=== PATIENT | male | born 1945 | race Caucasian/White ===

== ENCOUNTER 2017-10-22 09:57 | Emergency (ER) | payer SELFPAY ==
--- NOTE | 2017-10-22 11:18 | UC ---
Respiratory Complaint HPI - HPI Summary HPI Summary: States he has been coughing for the past week, started as a sore throat. Currently has production of dark spear-colored phlegm. Denies fever, SOB, CP or facial pain/post nasal drip. He denies any chronic conditions, he is not on any medications, denies allergies to medications - History of Current Complaint Chief Complaint: UCRespiratory Stated Complaint: COUGH Time Seen by Provider: 10/22/17 10:57 Hx Obtained From: Patient Onset/Duration: Gradual Onset, Lasting Days Timing: Intermittent Episodes Severity Initially: Mild Severity Currently: Moderate Pain Intensity: 3 Character: Cough: Productive, Sputum Description: - muro, dark Aggravating Factors: Nothing Alleviating Factors: Nothing Associated Signs And Symptoms: Positive: URI - Risk Factors Pulmonary Embolism Risk Factors: Negative Cardiac Risk Factors: Negative Pseudomonas Risk Factors: Negative Tuberculosis Risk Factors: Negative - Allergies/Home Medications Allergies/Adverse Reactions: Allergies Allergy/AdvReac Type Severity Reaction Status Date / Time No Known Allergies Allergy Verified 10/22/17 10:11 PMH/Surg Hx/FS Hx/Imm Hx Previously Healthy: Yes - Surgical History Surgical History: Yes Surgery Procedure, Year, and Place: angioplasty - Social History Alcohol Use: Occasionally Substance Use Type: None Smoking Status (MU): Former Smoker Review of Systems Respiratory: Cough All Other Systems Reviewed And Are Negative: Yes Physical Exam Triage Information Reviewed: Yes Appearance: Well-Appearing, No Pain Distress Vital Signs: Initial Vital Signs Temp 97.8 F 10/22/17 10:12 Pulse 79 10/22/17 10:12 Resp 17 10/22/17 10:12 BP 133/88 10/22/17 10:12 Pulse Ox 100 10/22/17 10:12 Vital Signs Reviewed: Yes Eyes: Positive: Conjunctiva Clear ENT: Positive: Hearing grossly normal, Pharynx normal, TMs normal, Tonsillar exudate, Uvula midline Neck: Positive: Supple, Nontender, No Lymphadenopathy Respiratory: Positive: Chest non-tender, Lungs clear, Normal breath sounds, No respiratory distress Cardiovascular: Positive: RRR, No Murmur, Pulses Normal, Brisk Capillary Refill Abdomen Description: Positive: Nontender UC Diagnostic Evaluation - Laboratory O2 Sat by Pulse Oximetry: 100 Respiratory Course/Dx - Course Course Of Treatment: Chest xray was negative. Continue oral hydration, rest and tylenol if needed. f/u with PCP for results of Hepatitis C screening test - Differential Dx/Diagnosis Provider Diagnoses: URI Discharge - Discharge Plan Condition: Stable Disposition: HOME Patient Education Materials: Upper Respiratory Infection (ED) Referrals: Peri Vitale MD [Primary Care Provider] -
--- NOTE | 2017-10-22 12:02 | RAD ---
HISTORY: Cough with dark sputum COMPARISONS: February 18, 2017 VIEWS: 4: Frontal dual-energy and lateral views of the chest. FINDINGS: CARDIOMEDIASTINAL SILHOUETTE: The cardiomediastinal silhouette is normal. JOSEPH: The joseph are normal. PLEURA: The costophrenic angles are sharp. No pleural abnormalities are noted. LUNG PARENCHYMA: There is hyperinflation. The lungs are clear. ABDOMEN: The upper abdomen is clear. There is no subphrenic gas. BONES AND SOFT TISSUES: Degenerative changes are noted along the spine. OTHER: None. IMPRESSION: NO ACTIVE CARDIOPULMONARY DISEASE.
[2017-10-22 12:09] VITALS: BP 141/87
== END 2017-10-22 12:20 | disposition home or self-care (01) ==
LOC: UCEAST 09:57
DX: J06.9 Acute upper respiratory infection, unspecified (principal); Z87.891 Personal history of nicotine dependence
CPT/HCPCS: 36415; 71046; 86803; 99212; G0463

== ENCOUNTER → 2019-09-20 11:09 | Day surgery (SDC) | payer MEDICARE ==
[~2019-09-20 11:09] MED LIST: Acetaminophen IV 1GM/100ML * 100 ML ONE; Atropine 1MG/ML INJ* 1 ML VIAL ONE; Bacitracin OINTMENT* 0.5% 0.5 oz TUBE ONE; Buffered Lidocaine 1% SYRIN* 1 ML/SYRINGE INTRADERM ONE; Bupivacaine 0.25% EPI 200,000* 30 ML SDV ONE; Dexamethasone IV* 4 MG/ML 1 ML (4 MG) ONE; DiMENhydriNATE IV* 50 MG/ML VIAL IV PUSH PRN; EPHEDrine (Pressors)* 50 MG/ML VIAL ONE; HYDROmorphone INJ1* 1 MG/ML SYRINGE IV PRN; HYDROmorphone INJ1* 1 MG/ML SYRINGE ONE; KETAMINE HCL* 50 MG/ML 10 ML VIAL ONE; Ketorolac INJ* 30 MG/ML 1 ML VIAL ONE; Lidocaine 2% PF * 5 ML VIAL ONE; Midazolam* 1 MG/ML 5 ML VIAL (5 MG) ONE; Naloxone* 0.4 MG/ML 1 ML VIAL IV PRN; Ondansetron INJ* 2 MG/ML VIAL ONE; PROCHLORPERAZINE INJ 5 MG/ML 2 ML VIAL IV PRN; Propofol* 10 MG/ML 20 ML BTL ONE; Rocuronium* 10 MG/ML VIAL ONE; ceFAZolin 2 GM PREMIX in ORs 2 GM/50 ML BAG ONE; fentaNYL* 50 MCG/ML 2 ML VIAL (100 MCG VIAL) ONE; oxyCODONE TAB* 5 MG TAB PO PRN
[2019-09-20] MEDS: Lactated Ringers 1000 ML Bag* 1,000 ML IV SCH ×2 (13:26→17:23)
--- NOTE | 2019-09-20 16:40 | OP ---
Operative Report - Blank - Operative Report Date of Operation: 09/20/19 Note: Operative Note Preoperative Dx: Bilateral Inguinal Hernias Postoperative Dx: Same Procedure: Laparoscopic repair of Bilatreral Inguinal Hernias With Mesh Anesthesia: GET Surgeon: Juanito MANN Assist: Aaron SANDERS EBL: < 25 cc Specimen: none Fluids: 1300cc LR Drain: none Findings: As above
[2019-09-20] MEDS: fentaNYL* 50 MCG/ML 2 ML VIAL (100 MCG VIAL) IV PRN ×4 (16:41→17:00)
[2019-09-20 20:49] VITALS: BP 158/99
--- NOTE | 2019-09-21 16:43 | OP ---
CC: [facility]; Primary Care Doctor * DATE OF OPERATION: 09/20/19 - SDS DATE OF : 49 SURGEON: Mehrdad Solomon MD [employer]PER[employer]ISH[employer]MENT: REEMA Ward ANESTHESIA: General anesthesia. PRE-OP DIAGNOSIS: Bilateral inguinal hernias. POST-OP DIAGNOSIS: Bilateral inguinal hernias. OPERATIVE PROCEDURE: Laparoscopic bilateral inguinal hernia repair with mesh. ESTIMATED BLOOD LOSS: Minimal. FLUIDS: Minimal crystalloid fluid given. SPECIMEN: None. DRAINS: None. DESCRIPTION OF PROCEDURE: Mr. Castillo was identified in the preoperative area. He was marked. Case was outlined again and consent was signed. He was taken to the operating room, placed on the operating table in supine position. Preoperative antibiotics were given. Sequential devices were placed on bilateral lower extremities and general anesthesia was induced. A Wills catheter was inserted by il and the abdomen was prepped and draped in the standard surgical fashion after the hair was clipped. A time-out was performed. An infraumbilical incision was made. This was deepened down to the anterior fascia on the left. This fascia was incised and the rectus pillar was retracted laterally and the preperitoneal space opened up. Finger dissection was utilized to free up in this preperitoneal space and a 12 mm trocar was then inserted. The space was then allowed to insufflate to a pressure of 12 mmHg. There was no evidence of pneumoperitoneum. Next, camera dissection was utilized, freeing up the loose areolar tissue right down to the pubic symphysis. Guilherme's ligament on the left and right were already starting to be seen. We then placed two 5 mm along the lower midline and blunt dissection was carried out to free up Guilherme's completely both on the left and the right side. Attention was turned towards the direct hernia on the right, this was retracted back and had a significant amount of fat within the hernia defect itself and the defect was quite large. We then turned our attention to the epigastric vessels, these were maintained anteriorly and space of Bogros was opened up laterally. Next, a large indirect sac was isolated and with significant traction required, it was freed up from the spermatic structures. The vas deferens was identified and was freed up from this hernia sac. We continued our dissection posteriorly to allow for placement of a mesh. There was some bleeding and this was controlled with cautery, but first we utilized the gauze in this space to mop up this bleeding. Attention was then turned towards the left side. A large direct hernia was again identified with again a significant amount of fat within this. This was dissected free almost in pieces to allow for us to fully appreciate the borders of defect. Guilherme's ligament was cleared off. We identified the epigastric vessels again and the space of Bogros was cleared off. Only a small edge of peritoneum extended towards the deep ring. This was gently dissected free and placed posteriorly. Next, the gauze was removed and hemostasis was achieved. We then placed a large 3D Max right-sided mesh into the preperitoneal space, allowed it to unfurl , and tacked it to the Guilherme's ligament and also laterally and also superiorly on the rectus muscle. Similar mesh was placed for the left side. These crossed at the midline and were tacked together at the midline. It was also tacked at Guilherme's ligament and also laterally and superiorly. The preperitoneal space was then allowed to collapse. Trocar was removed under direct vision. Anterior fascia was reapproximated with 0 Vicryl suture in a [id number] fashion. 4-0 Monocryl was utilized to close all 3 skin incisions. Sterile dressing was applied. The patient tolerated the procedure well, was woken up in the OR and transferred to the PACU in stable condition. [id number]/CPS #: [id number] NATASHA
== END | disposition home or self-care (01) ==
LOC: OR 11:09
PROVIDERS: ATTEND Surgery
DX: K40.20 Bilateral inguinal hernia, without obstruction or gangrene, not specified as recurrent (principal); I25.10 Atherosclerotic heart disease of native coronary artery without angina pectoris; E78.00 Pure hypercholesterolemia, unspecified; Z95.5 Presence of coronary angioplasty implant and graft
CPT/HCPCS: A9270-GY; C1781; J0461; J0690; J1100; J1170; J1885; J2250; J2405; J2704; J3010